=== PATIENT | male | born 1950 | race African-American/Black ===

== ENCOUNTER 2022-05-13 15:52 | Emergency (ER) | payer MEDICAID, OTHER ==
[~2022-05-13] VITALS: Ht 185.4 cm; Wt 104.0 kg
[2022-05-13] MEDS: OLANZAPINE 10MG TABLET PO SCH (17:39)
[2022-05-13 18:23] LABS: HEMATOCRIT. 42.7 % (42.0-52.0); HEMOGLOBIN. 14.4 g/dL (14.0-18.0); MEAN CORPUSCULAR HEMOGLOBIN 29.6 pg (28.0-32.0); MEAN CORPUSCULAR VOLUME 87.6 fL (80.0-94.0); MEAN PLATELET VOLUME 7.8 fl (7.4-10.4); PLATELET 242 x1000/uL (130-400); RED BLOOD CELL COUNT 4.87 mill/uL (4.7-6.1); RED CELL DISTRIBUTION WIDTH 14.9 % (11.6-14.6)
[2022-05-13 18:29] LABS: CHLORIDE 110 mEq/L (98-107)
[2022-05-13 18:38] LABS: ETHANOL BLOOD < 10 mg/dL
[2022-05-13 19:26] LABS: PLATELET ESTIMATE NORMAL
[2022-05-13 19:53] LABS: *AMPHETAMINES SCREEN URINE NEGATIVE (NEGATIVE); *BARBITURATES SCREEN URINE NEGATIVE (NEGATIVE); *BENZODIAZEPINES SCREEN URINE NEGATIVE (NEGATIVE); *COCAINE SCREEN URINE NEGATIVE (NEGATIVE); CANNABINOID URINE SCREEN NEGATIVE (NEGATIVE); METHADONE URINE SCREEN NEGATIVE (NEGATIVE); OPIATES URINE SCREEN NEGATIVE (NEGATIVE); PHENCYCLIDINE URINE SCREEN PRESUMTIVE POSITIVE (NEGATIVE)
[2022-05-13 20:28] LABS: CLARITY URINE CLOUDY (CLEAR); COLOR URINE DARK YELLOW (YELLOW); KETONES URINE TRACE (NEGATIVE); LEUKOCYTE ESTERASE URINE NEGATIVE (NEGATIVE); NITRITE URINE NEGATIVE (NEGATIVE); OCCULT BLOOD URINE NEGATIVE (NEGATIVE); PROTEIN URINE 1+ (NEGATIVE); SPECIFIC GRAVITY URINE 1.026 (1.005-1.030)
[2022-05-14] MEDS: OLANZAPINE 10MG TABLET PO SCH (09:00)
[2022-05-14] MEDS: RISPERIDONE 0.5MG TABLET PO SCH ×2 (10:00→17:00)
[2022-05-15 00:24] VITALS: BP 134/74
== END 2022-05-15 01:24 | disposition short-term general hospital (02) ==
LOC: ER 15:52
DX: R45.851 Suicidal ideations (principal); I10 Essential (primary) hypertension; Z20.822 Contact with and (suspected) exposure to COVID-19
CPT/HCPCS: 36415; 80053; 80305; 80307; 80320; 80329; 81003; 85025; 87426; 93005; 99285; C9803; G0480

== ENCOUNTER 2022-07-06 10:05 | Emergency (ER) | payer MEDICAID ==
[~2022-07-06] VITALS: Ht 185.4 cm; Wt 104.0 kg
[2022-07-06 16:01] LABS: CLARITY URINE CLEAR (CLEAR); COLOR URINE YELLOW (YELLOW); KETONES URINE NEGATIVE (NEGATIVE); LEUKOCYTE ESTERASE URINE NEGATIVE (NEGATIVE); NITRITE URINE NEGATIVE (NEGATIVE); OCCULT BLOOD URINE NEGATIVE (NEGATIVE); PROTEIN URINE TRACE (NEGATIVE); SPECIFIC GRAVITY URINE 1.018 (1.005-1.030)
[2022-07-06 16:11] LABS: *AMPHETAMINES SCREEN URINE NEGATIVE (NEGATIVE); *BARBITURATES SCREEN URINE NEGATIVE (NEGATIVE); *BENZODIAZEPINES SCREEN URINE NEGATIVE (NEGATIVE); *COCAINE SCREEN URINE NEGATIVE (NEGATIVE); CANNABINOID URINE SCREEN NEGATIVE (NEGATIVE); METHADONE URINE SCREEN NEGATIVE (NEGATIVE); OPIATES URINE SCREEN NEGATIVE (NEGATIVE); PHENCYCLIDINE URINE SCREEN PRESUMTIVE POSITIVE (NEGATIVE)
[2022-07-06 16:24] LABS: BASOPHILS % 0.8 % (0.0-2.0); EOSINOPHILS % 6.8 % (0.0-5.0); HEMOGLOBIN. 13.1 g/dL (14.0-18.0); LYMPHOCYTES % 23.9 % (20.0-50.0); MEAN CORPUSCULAR HEMOGLOBIN 29.7 pg (28.0-32.0); MEAN CORPUSCULAR VOLUME 88.2 fL (80.0-94.0); MEAN PLATELET VOLUME 7.7 fl (7.4-10.4); MONOCYTES % 13.2 % (2.0-8.0); NEUTROPHILS % 55.3 % (40.0-76.0); PLATELET 265 x1000/uL (130-400); RED BLOOD CELL COUNT 4.42 mill/uL (4.7-6.1)
[2022-07-06 16:27] LABS: CHLORIDE 109 mEq/L (98-107)
[2022-07-06 16:35] LABS: ETHANOL BLOOD < 10 mg/dL
[2022-07-08] MEDS: RISPERIDONE 1MG TABLET PO SCH ×2 (12:12→21:15)
[2022-07-09 00:40] VITALS: BP 61/71
== END 2022-07-09 01:33 ==
LOC: ER 10:09
DX: R44.0 Auditory hallucinations (principal); R45.851 Suicidal ideations; F32.9 Major depressive disorder, single episode, unspecified; I10 Essential (primary) hypertension; Z20.822 Contact with and (suspected) exposure to COVID-19
CPT/HCPCS: 36415; 80053; 80305; 80307; 80320; 80329; 81003; 85025; 87426; 99283; C9803; G0480